=== PATIENT | male | born 1995 | race Caucasian/White ===

== ENCOUNTER 2023-09-10 20:11 | Emergency (ER) | payer OTHER, SELFPAY ==
--- NOTE | ~2023-09-10 | XR_ITS ---
EXAMINATION: XR CHEST CLINICAL INFORMATION: Chest pain. COMPARISON: None available. TECHNIQUE: 2 views of the chest were obtained. FINDINGS: No significant abnormality is noted involving the heart, lungs, mediastinum, bony thorax or soft tissues. XR/XR chest 2V IMPRESSION: Unremarkable examination.
--- NOTE | 2023-09-10 20:12 | ECG_ITS ---
Test Reason : TIGHT CHEST/SOB Blood Pressure : / mmHG Vent. Rate : 096 BPM Atrial Rate : 097 BPM P-R Int : 194 ms QRS Dur : 090 ms QT Int : 356 ms P-R-T Axes : 015 003 036 degrees QTc Int : 449 ms Normal sinus rhythm RSR' or QR pattern in V1 suggests right ventricular conduction delay Otherwise normal ECG No previous ECGs available Referred By: Anabel Rice Electronically Signed By:SULMA COREA MD
[2023-09-10 20:45] VITALS: BP 157/101; PULSE 90; RESP 18; TEMP 36.9; O2SAT 98; BMI 42.1
--- NOTE | 2023-09-10 20:46 | ED_ITS ---
HPI - Chest Pain General Chief Complaint: Dyspnea Stated Complaint: sob, tight chest Time Seen by Provider: 09/10/23 21:25 Source: patient Mode of arrival: ambulatory Limitations: no limitations History of Present Illness HPI narrative: Patient is a 28-year-old male cells emergency department for evaluation of chest pain and shortness of breath. He reports 1 week with intermittent symptoms. Midsternal radiating to the left disc is tightness, typically lasting approximately 20 minutes before self-resolving. At times the pain radiates to his left on a rule. He states he has noticed that this occurs often after he smokes a cigarette. He has a chronic cough but states he has not had any sputum production or changes in the consistency of the cough. He denies fevers, chills, neck pain, neck stiffness, nausea, vomiting, abdominal pain, numbness or tingling of the extremities. He denies any pertinent past medical history. He does report an extensive cardiac history and his paternal family, reporting that his father had an MN at the age of 48 with CABG Related Data Allergies Allergy/AdvReac Type Severity Reaction Status Date / Time Unable to Assess Allergy Verified 09/10/23 20:12 Review of Systems 2 Review of Systems: Yes all other systems are reviewed and are negative PMFSH Past Medical History Attestation statement: The following information was validated with the patient. Source: old records reviewed Social History Advance Directives: No Advance Directives Information Provided: No Physical Exam 2 Vital Signs: Vital Signs: Last Vital Signs Temp 97.9 F 09/10/23 21:46 Pulse 61 09/10/23 21:46 Resp 16 09/10/23 21:46 BP 114/70 09/10/23 21:46 Pulse Ox 94 09/10/23 21:46 O2 Del Method Room Air 09/10/23 21:46 BMI result Body Mass Index 42.1 Appearance: Alert.?Oriented to person, place and time. No acute distress.?Normal affect. Eyes: Pupils equal, round and reactive to light.? ENT: Pharynx normal.?? Neck: Normal inspection.? Neck supple.?? CVS: Heart sounds normal. Normal heart rate and rhythm.? Pulses normal.?? Respiratory: No respiratory distress.? Lung sounds clear to auscultation bilaterally?? Abdomen: Soft and non-tender. Normoactive bowel sounds. Skin: Skin warm and dry.? Normal skin color.? Extremities: No lower extremity edema.? No calf ttp? Neuro: Moves all extremities spontaneously. Sensation intact bilaterally. CN II- XII intact. No focal neuro deficits. Ambulates with normal steady gait. Course Course Course Narrative: This is a rapid medical exam. Deferred additional HPI, ROS, PE to primary provider. 28 yo male with no known medical history (significant family history) here with chest tightness/shortness of breath/arm pain worsened with exertion. Will obtain labs, EKG, CXR VSS Medical Decision Making Medical Decision Making [facility] Narrative: Patient is a 28-year-old male who presents to emergency department for evaluation of chest pain and shortness of breath as per HPI. At the time my examination he is overall well-appearing, nontoxic, afebrile. He is without tachycardia, tachypnea, or hypoxia. He is able to see clear full sentences. I reviewed labs obtained prior to my assumption of care, mild leukocytosis of 11.5, likely due to inflammatory reaction rather than infectious. CMP overall unremarkable. Wells negative, unlikely PE, no evidence of DVT. High sensitive troponin nondetectable, given duration of symptoms, unlikely ACS, EKG revealing normal sinus rhythm with ventricular rate of 96, QTC 449, no ST elevation, no ST depression. Chest x-ray is without acute cardiopulmonary process. At this time he is asymptomatic. Atypical chest pain, advised outpatient follow-up with primary care provider, reviewed worrisome signs and symptoms that would warrant re-evaluation in the emergency department. All questions answered. Stable for discharge. Differential Diagnosis Differential Diagnoses: The differential diagnosis associated with the presentation includes (As noted above) Admission/Observation Consideration of admission/observation: Escalation of care including admission/observation considered (See narrative above for further detail) Lab Data [facility] Lab Attestation statement: I reviewed the patient's lab results. (As noted above) 09/10/23 21:21 09/10/23 21:21 Labs: Lab Results 09/10/23 Range/Units 21:21 WBC 11.5 H (4.8-10.8) X10*3/uL RBC 5.22 (4.60-5.80) X10*6/uL Hgb 16.2 (14.0-18.0) g/dl Hct 45.7 (42.0-52.0) % MCV 87.5 (80.0-98.0) fL MCH 31.0 (27.0-33.0) pg MCHC 35.4 (31.0-36.0) g/dl RDW 12.2 (11.0-16.0) % Plt Count 232 (160-400) X10*3/uL MPV 9.7 (9.4-12.4) fL Immature Gran % (Auto) 0.3 (0.0-0.4) % Neut % (Auto) 62.8 (45-73) % Lymph % (Auto) 26.1 (20-40) % [place] % (Auto) 7.3 (2-11) % Eos % (Auto) 3.1 (0-4) % Baso % (Auto) 0.4 (0-2) % Lymph # (Auto) 3.0 (1.2-4.9) X10*3/uL [place] # (Auto) 0.8 (0.1-1.2) X10*3/uL Eos # (Auto) 0.4 (0.0-0.4) X10*3/uL Baso # (Auto) 0.1 (0.0-0.2) X10*3/uL Abs Immat Gran (auto) 0.03 (0.00-0.03) X10*3/uL Absolute Neuts (auto) 7.2 (2.0-8.3) x10*3/uL Absolute Nucleated RBC 0.000 (0.0-0.012) X10*3/uL Nucleated RBC % (auto) 0.0 (0.0-0.2) /100WBC PT 12.2 (11.1-13.3) SEC INR 1.0 (0.9-1.1) Sodium 141 (135-145) mmol/L Potassium 3.7 (3.3-5.1) mmol/L Chloride 105 (96-108) mmol/L Carbon Dioxide 29 (22-29) mmol/L Anion Gap 11 L (12-20) BUN 16 (9-16) mg/dL Creatinine 1.17 (0.5-1.4) mg/dL Estim Creat Clear Calc 151.3 Estimated GFR > 60 Random Glucose 103 (60-115) mg/dL Calcium 9.5 (8.4-10.2) mg/dL Total Bilirubin 0.4 (0.0-1.0) mg/dL Direct Bilirubin 0.1 (0.0-0.5) mg/dL AST 22 (5-37) U/L ALT 33 (0-40) U/L Alkaline Phosphatase 97 (39-117) U/L Troponin I High Sens < 2.7 (<3.5-35.0) ng/L Total Protein 7.1 (6.5-8.0) g/dL Albumin 4.3 (3.5-5.0) g/dL Independent Interpretation I performed an independent interpretation of an: EKG (See narrative above) and Plain X-Ray (I personally interpreted chest x-ray and agree with radiologist impression ) Radiology Impression Discussion of test interpretation with radiology: I have reviewed the radiologist's reading. Radiologist Impression: XR/XR chest 2V IMPRESSION: Unremarkable examination. Independent Historian Clinical information obtained from an independent historian. History obtained from or confirmed by: Spouse (Present who confirms history) Discharge Plan Discharge Clinical Impression: Chest pain Patient Disposition: Home, Self-Care Instructions: Chest Pain (ED), Noncardiac Chest Pain (ED) Additional Instructions: You can take ibuprofen 200 mg, 3 tablets (600mg) every 6-8 hours as needed for pain, in addition to Tylenol 500 mg, 2 tablets (1,000mg) every 4-6 hours as needed for pain, but not to exceed 3 doses daily (3,000mg).? Contact your primary care provider and arrange for a follow-up visit within 1-3 days. Return back to emergency department any new or worsening symptoms or concerns. Referrals: Physician,None [Primary Care Provider] -
--- NOTE | 2023-09-10 21:25 | PC.NURSE ---
Pt brought back to ED 2 after having a witnessed syncopal episode during blood draw. Appears diaphoretic. VSS.
[2023-09-10 21:26] LABS: MANUAL DIFF FLAG NO
[2023-09-10 21:27] VITALS: BP 114/67; PULSE 73; RESP 20; TEMP 36.4; O2SAT 95
[2023-09-10 21:29] LABS: Basophils Absolute Auto 0.1 X10*3/uL (0.0-0.2); Basophils Percent Auto 0.4 % (0-2); Eosinophils Absolute Auto 0.4 X10*3/uL (0.0-0.4); Eosinophils Percent Auto 3.1 % (0-4); Hematocrit 45.7 % (42.0-52.0); Hemoglobin 16.2 g/dl (14.0-18.0); Imm Gran Abs Auto 0.03 X10*3/uL (0.00-0.03); Imm Gran Pct Auto 0.3 % (0.0-0.4); Lymphocytes Percent Auto 26.1 % (20-40); Mean Corpuscular HGB Conc 35.4 g/dl (31.0-36.0); Mean Corpuscular Volume 87.5 fL (80.0-98.0); Mean Platelet Volume 9.7 fL (9.4-12.4); Monocytes Absolute Auto 0.8 X10*3/uL (0.1-1.2); Monocytes Percent Auto 7.3 % (2-11); Neutrophils Absolute Auto 7.2 x10*3/uL (2.0-8.3); Neutrophils Percent Auto 62.8 % (45-73); Platelet Count 232 X10*3/uL (160-400); Red Blood Count 5.22 X10*6/uL (4.60-5.80); Red Cell Distribution Width 12.2 % (11.0-16.0); White Blood Count 11.5 X10*3/uL (4.8-10.8)
[2023-09-10 21:36] LABS: Prothrombin Time 12.2 SEC (11.1-13.3)
[2023-09-10 21:42] LABS: Alanine Aminotransferase 33 U/L (0-40); Albumin Level 4.3 g/dL (3.5-5.0); Alkaline Phosphatase 97 U/L (39-117); Anion Gap 11 (12-20); Aspartate Amino Transferase 22 U/L (5-37); Bilirubin Direct 0.1 mg/dL (0.0-0.5); Bilirubin Total 0.4 mg/dL (0.0-1.0); Blood Urea Nitrogen 16 mg/dL (9-16); Calcium 9.5 mg/dL (8.4-10.2); Carbon Dioxide 29 mmol/L (22-29); Chloride 105 mmol/L (96-108); Creatinine Clr Calc Pharmacy 151.3; Estimated Glomerular Filt Rate > 60; Glucose Random 103 mg/dL (60-115); Potassium 3.7 mmol/L (3.3-5.1); Sodium 141 mmol/L (135-145); Total Protein 7.1 g/dL (6.5-8.0)
[2023-09-10 21:46] VITALS: BP 114/70; PULSE 61; RESP 16; TEMP 36.6; O2SAT 94
--- NOTE | 2023-09-10 21:47 | MHC.EDTECH ---
Patient came back from triage area,placed on the case monitor and vitals taken, visitor at bedside and call norris within reach
[2023-09-10 21:50] LABS: Troponin-I High Sensitivity < 2.7 ng/L (<3.5-35.0)
[2023-09-10 23:43] VITALS: BP 105/46; PULSE 73; RESP 18; O2SAT 96
== END 2023-09-10 23:46 | disposition home or self-care (01) ==
PROVIDERS: Nurse Practitioner Family; Emergency Provider Emergency Medicine
DX: R07.9 Chest pain, unspecified (principal); R06.02 Shortness of breath; F17.210 Nicotine dependence, cigarettes, uncomplicated
CPT/HCPCS: 36415; 71046; 80048; 80076; 84484; 85025; 85610; 93005; 99283; 99285